=== PATIENT | male | born 1960 | race Caucasian/White ===

== ENCOUNTER 2020-11-25 10:24 | Emergency (ER) | payer OTHER ==
[2020-11-25] MEDS ORDERED: Naloxone HCl 0.4 mg/ml Vial ONE (10:50)
[2020-11-25 11:28] LABS: Bilirubin Small (Negative); Blood, Urine Large (Negative); Glucose, Urine (Dipstick) Negative (Negative); Ketone, Urine Negative (Negative); Leukocyte Small (Negative); Nitrite Negative (Negative); Protein, Urine (Dipstick) 30 mg/dL (Neg-Trace)
[2020-11-25 11:31] LABS: Clarity Clear (Clear)
[2020-11-25 11:36] LABS: RBC/HPF 21-50 HPF (0-3); Squamous Epithelial 0-3 HPF (0-3)
[2020-11-25 11:37] LABS: Bacteria/HPF Rare-Few HPF (None Seen)
[2020-11-25 11:45] LABS: Amphetamine Not Detected (NotDetected); Barbiturates Screen Not Detected (NotDetected); Benzodiazepine Screen Not Detected (NotDetected); Cocaine Metabolite Screen Not Detected (NotDetected); Medtox Control Line Valid? VALID (VALID); Methadone Not Detected (NotDetected); Methamphetamine Not Detected (NotDetected); Opiate Screen Not Detected (NotDetected); Oxycodone Screen Not Detected (NotDetected); Phencyclidine (PCP) Not Detected (NotDetected); THC/Cannabinoid Screen Not Detected (NotDetected); Tricyclic Screen Detected (NotDetected)
--- NOTE | 2020-11-25 11:55 | RAD ---
PORTABLE CHEST 1 VIEW: DATE: 11/25/2020. TIME: 11:39 AM. HISTORY: Altered mental status. COMPARISON: 10/16/2020. FINDINGS/IMPRESSION: The heart is enlarged. There are interstitial and airspace opacities in the lung edouard, right great er than left. No pneumothoraces or large effusions are seen. POS: LÓPEZ
[2020-11-25 12:00] LABS: #Basophils 0.1 thou/uL (0.0-0.2); #Eosinphils 0.4 thou/uL (0.0-0.7); #Lymphocytes 0.8 thou/uL (1.20-3.40); #Monocytes 0.6 thou/uL (0.11-0.59); #Neutrophils 7.7 thou/uL (1.40-6.50); %Basophils 1.2 % (0.0-1.0); %Eosinophils 3.7 % (0.0-10.0); %Lymphocytes 8.5 % (21.0-51.0); %Monocytes 6.2 % (0.0-10.0); %Neutrophils 80.4 % (42.0-75.0); Hemoglobin 12.8 g/dL (14.0-18.0); Mean Corpuscular HGB CONC 31.3 g/dL (32.0-36.0); Mean Corpuscular Hemoglobin 30.5 pg (27.0-31.0); Mean Corpuscular Volume 97.2 fL (78.0-98.0); Mean Platelet Volume 8.2 fL (7.4-10.4); Platelet Count 248 thou/uL (130-400); RBC Distribution Width 15.5 % (11.5-14.5); White Blood Cell (WBC) Count 9.6 thou/uL (4.8-10.8)
--- NOTE | 2020-11-25 12:05 | CT ---
CT BRAIN WITHOUT CONTRAST: HISTORY: Altered mental status. COMPARISON: None. FINDINGS: There is encephalomalacia likely due to remote insult/old infarction involving the right posterior pa rietal, temporal and occipital lobes. The ventricular size is appropriate and the basilar cisterns p atent. No evidence of acute infarct, hemorrhage, midline shift, or abnormal extraaxial fluid collections is seen. The bony calvarium is intact. IMPRESSION: No CT evidence of acute intracranial process. POS: LÓPEZ
[2020-11-25 12:11] LABS: Acetaminophen Less than 6.0 mcg/mL (10.0-30.0); Alcohol Less than 10 mg/dL (Less than 10); INR-International Normal Ratio 1.6; PTT 41.6 sec (22.9-36.1); Prothrombin Time 19.3 sec (12.0-14.7); Salicylate Less than 8.0 mg/dL (15.0-30.0)
[2020-11-25] MEDS ORDERED: Cefepime 2 GM VIAL ONE (12:23)
[2020-11-25] MEDS ORDERED: Sodium Chloride 0.9% 250 ML 250 ML ONE (12:23)
[2020-11-25 12:34] LABS: ALT (SGPT) 17 U/L (8-55); AST (SGOT) 28 U/L (5-34); Albumin 4.2 g/dL (3.5-5.0); Alkaline Phosphatase 176 U/L (40-110); Anion Gap 23 mmol/L (10-20); BUN (Urea Nitrogen) 35 mg/dL (8.4-25.7); Bilirubin, Total 1.3 mg/dL (0.2-1.2); Calc. Creatinine Clearance 0 mL/min (70-130); Calcium 9.5 mg/dL (7.8-10.44); Carbon Dioxide 20 mmol/L (22-29); Chloride 106 mmol/L (98-107); Globulin 3.7 g/dL (2.4-3.5); Glucose 128 mg/dL (70-105); Potassium 4.5 mmol/L (3.5-5.1); Protein, Total 7.9 g/dL (6.0-8.3); Sodium 144 mmol/L (136-145)
== END 2020-11-25 13:35 | disposition short-term general hospital (02) ==
LOC: NAV ERS 10:24
DX: R41.82 Altered mental status, unspecified (principal); J18.9 Pneumonia, unspecified organism; I11.0 Hypertensive heart disease with heart failure; I50.9 Heart failure, unspecified; E78.5 Hyperlipidemia, unspecified; M10.9 Gout, unspecified; E66.9 Obesity, unspecified; Z79.899 Other long term (current) drug therapy; Z79.82 Long term (current) use of aspirin; Z79.01 Long term (current) use of anticoagulants; Z86.73 Personal history of transient ischemic attack (TIA), and cerebral infarction without residual deficits
CPT/HCPCS: 51701; 70450; 71045; 80053; 80306; 80307; 81003; 81015; 83605; 84443; 84484; 85025; 85610; 85730; 87040; 93005; 96374; 96375; J0692; J2310; J3370; J7050

== ENCOUNTER 2020-12-09 23:53 | Emergency (ER) | payer MEDICARE, OTHER ==
[2020-12-10] MEDS ORDERED: Boostrix 0.5 ML (Tdap) VIAL ONE (01:31)
--- NOTE | 2020-12-10 07:28 | CT ---
PRELIMINARY REPORT/[facility]/EMERGENCY AFTER HOURS PROCEDURE EXAM: CT Head Without Intravenous Contrast. CLINICAL HISTORY: Patient is a 60-year-old male who is a senior care patient and reports that he rolled out of bed and accidentally fell to the floor. Patient hit his face on the concrete with cracking and small bleeding of his lips as well as contusion to his nose with minimal amount of bleeding from his nose. Patient denies loss of consciousness. Patient denies headache or neck pain. Patient is currently taking Eliquis as he has A. fib and previous stroke. 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 Patient hit his face on the concrete with cracking and small bleeding of his lips as well as contusion to his nos e with minimal amount of bleeding from his nose. Patient denies loss of consciousness. Patient denies headache or neck pain. Patient is currently taking Eliquis as he has A. fib and previous strok e. TECHNIQUE: Axial computed tomography images of the head/brain without intravenous contrast. COMPARISON: 11/25/2020. FINDINGS: BRAIN: No acute intraparenchymal hemorrhage. No mass lesion. No CT evidence for acute territorial infarct. N o midline shift or extra-axial collection. Hypodense septal malacia in the right parietal lobe, occipital lobe, temporal lobe. Ex vacuo dilatation of the right lateral ventricle. Mild prominence of the sulci and ventricles. Arteriosclerosis. VENTRICLES: No hydrocephalus. ORBITS: The orbits are unremarkable. SINUSES AND MASTOIDS: The paranasal sinuses and mastoid air cells are clear. SOFT TISSUES: No significant facial or scalp soft tissue swelling evident. No radiopaque foreign body is seen. BONES: No acute skull fracture. IMPRESSION: No acute intracranial abnormality. 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 Mild generalized cerebral atrophy. ELECTRONICALLY SIGNED BY: Kd Hi MD Dec 10, 2020 12:47:17 AM WOOD DRILL OPERATOR This report is intended for review by the ordering physician only, in accordance of law. If you recei ve this report in error, please call [facility] at [phone]. FINAL REPORT Final interpretation Head CT without contrast: 12/10/2020 COMPARISON: 11/25/2020 HISTORY: Fall, trauma, injury. FINDINGS: There is extensive parietal and occipital encephalomalacia on the right consistent with a l arge area of prior infarction. The visualized paranasal sinuses and mastoid air cells are grossly unremarkable. No displaced calvarial fracture. No intracranial hemorrhage, midline shift, or mass eff ect. IMPRESSION: Chronic findings as above. No intracranial hemorrhage or displaced calvarial fracture. This is in agreement with the preliminary report. Code QA Transcribed Date/Time: 12/10/2020 7:32 AM
--- NOTE | 2020-12-10 07:36 | CT ---
PRELIMINARY REPORT/[facility]/EMERGENCY AFTER HOURS PROCEDURE: EXAM: CT Maxillofacial Without Intravenous Contrast. CLINICAL HISTORY: Patient is a 60-year-old male who is a longterm patient and reports that he rol led out of bed and accidentally fell to the floor. Patient hit his face on the concrete with cracking and small bleeding of his lips as well as contusion to his nose with minimal amount of bleed ing from his nose. Patient denies loss of consciousness. Patient denies headache or neck pain. Patient is currently taking Eliquis as he has A. fib and previous stroke. Patient is a 60-year-old ma le who is a longterm patient and reports that he rolled out of bed and accidentally fell to the floor. Patient hit his face on the concrete with cracking and small bleeding of his lips as well as c ontusion to his nose with minimal amount of bleeding from his nose. TECHNIQUE: Axial computed tomography images of the face without intravenous contrast. Sagittal and co bryce reformations performed. CONTRAST: Without COMPARISON: None provided. FINDINGS: BONES: No acute fracture or focal osseous lesion. The mandible is intact. SOFT TISSUES: The paranasal soft tissues are unremarkable. SINUSES: The sinuses are clear. ORBITS: The orbits are normal. No retrobulbar hematoma or mass. IMPRESSION: No acute maxillofacial fracture. ELECTRONICALLY SIGNED BY: Kd Hi MD Dec 10, 2020 12:59:05 AM OPERATING ROOM TECHNICIAN FINAL REPORT FACIAL BONE CT WITHOUT CONTRAST: HISTORY: Pain. Injury.. FINDINGS: Visualized brain parenchyma, orbits do not demonstrate posttraumatic change. Maxillofacial bones are intact.. Adequate aeration of the visualized sinuses and mastoid air cells. No obvious masses within the oral cavity. Midline fatty raphae of the tongue is grossly preserved. IMPRESSION: 1. This report is in agreement with initial report by [facility]. 2. No evidence of a maxillofacial fracture. Transcribed Date/Time: 12/10/2020 7:52 AM
== END 2020-12-10 02:30 ==
LOC: NAV ERS 23:53
DX: S00.33XA Contusion of nose, initial encounter (principal); I11.0 Hypertensive heart disease with heart failure; N40.0 Benign prostatic hyperplasia without lower urinary tract symptoms; I50.9 Heart failure, unspecified; M10.9 Gout, unspecified; E66.9 Obesity, unspecified; E78.5 Hyperlipidemia, unspecified; Z79.82 Long term (current) use of aspirin; Z79.01 Long term (current) use of anticoagulants; Z79.899 Other long term (current) drug therapy; W06.XXXA Fall from bed, initial encounter
CPT/HCPCS: 70450; 70486; 90471; 90715

== ENCOUNTER 2021-04-27 12:07 | Emergency (ER) | payer OTHER, MEDICAID, MEDICARE | END 2021-04-27 14:10 | disposition home or self-care (01) | LOC: NAV ERS 12:07 | DX: S01.511A Laceration without foreign body of lip, initial encounter (principal); I11.0 Hypertensive heart disease with heart failure; I50.9 Heart failure, unspecified; E11.9 Type 2 diabetes mellitus without complications; E66.9 Obesity, unspecified; E78.5 Hyperlipidemia, unspecified; Z86.718 Personal history of other venous thrombosis and embolism; Z86.73 Personal history of transient ischemic attack (TIA), and cerebral infarction without residual deficits; Z79.01 Long term (current) use of anticoagulants; Z79.82 Long term (current) use of aspirin; Z79.899 Other long term (current) drug therapy; W06.XXXA Fall from bed, initial encounter | CPT/HCPCS: 70450; 70486 ==